=== PATIENT | male | born 1985 | race Two or more races ===

== ENCOUNTER 2024-04-28 01:32 | Emergency (ER) | payer OTHER ==
[~2024-04-28] VITALS: Ht 167.6 cm; Wt 106.0 kg
[2024-04-28] MEDS: FLUORESCEIN SOD OPTH TEST STRIP EACHEYE ONE (02:30)
[2024-04-28] MEDS ORDERED: IBUP-1455 PO (02:56)
[2024-04-28] MEDS ORDERED: HYDR-4902 PO (02:56)
[2024-04-28] MEDS ORDERED: CIPR0.3S19 OP (02:56)
[2024-04-28] MEDS: MORPHINE SULFATE 4 MG/ML SYR/VIAL IM ONE (02:58)
[2024-04-28] MEDS: ONDANSETRON HCL 4 MG/2 ML VIAL IM ONE (02:59)
[2024-04-28 03:08] VITALS: BP 124/70; PULSE 84; RESP 18; TEMP 97.9; O2SAT 97
== END 2024-04-28 03:12 | disposition home or self-care (01) ==
LOC: ER 01:32
DX: S05.01XA Injury of conjunctiva and corneal abrasion without foreign body, right eye, initial encounter (principal); X08.8XXA Exposure to other specified smoke, fire and flames, initial encounter; Y93.89 Activity, other specified; Y92.89 Other specified places as the place of occurrence of the external cause; Y99.8 Other external cause status
CPT/HCPCS: 96372; 99284; J2270; J2405